=== PATIENT | female | born 1995 | race Caucasian/White ===

== ENCOUNTER 2023-10-01 10:31 | Emergency (ER) | payer MEDICAID, SELFPAY ==
[2023-10-01 10:33] VITALS: BP 135/75; PULSE 93; RESP 16; TEMP 35.9; O2SAT 98; BMI 21.8
[2023-10-01] MEDS: Fluorescein 1 MG STRIP 1 STRIP OPHTHALMIC (11:02)
--- NOTE | 2023-10-01 11:11 | EDS_ITS ---
HPI History of Present Illness Chief Complaint: Vision Prob Informant: patient Narrative Narrative: Patient is a 28-year-old female with history of alopecia, PCOS, SVT (status post EP study which was negative) followed by a month of migraine. When this migraine occurred she had 2 ER visits at [facility]. She states that she had a head CT at this time and on a subsequent visit had an LP. She denies ever following up but also reports she does not have insurance. This was in 2020. She states she never seen neurology. She is presenting today with blurry vision of her right eye as well as seeing a ring of light around things which she describes as a halo effect. She notes when she woke up she felt this but its been a couple hours and she still has blurry vision. She also notes that she is been having problems with her right eye for the past few months. She states she will get pain or pressure behind her eye and sometimes feel like she is having involuntary movement of her right eye. She states it seems like it is skipping frames. She did try flushing her eye out with no relief. Denies any trauma. She now feels that her eye is painful but states because it feels like it is draining. No other complaints or concerns at this time. Does report a family history on her mother side with an uncle who had MS. No other neurologic conditions reported in the family. [facility] Medical History PCOS (polycystic ovarian syndrome) Home Medications peg 400-propylene glycol (PF) 0.4 %-0.3 % eye drops in a dropperette (Systane (PF)) 1 drp EACH EYE Q4H PRN dry eye(s) #30 ea 10/01/23 [Rx Last Taken Unknown] Allergy/AdvReac Type Severity Reaction Status Date / Time escitalopram [From Lexapro] Allergy Intermediate Shortness Verified 10/01/23 10:33 of breath ROS ROS ED Constitutional Constitutional ED: Denies chills or fever(s) Eyes Eyes: Reports blurry vision and change in vision right; Denies diplopia ENT ENT ED: Denies ear pain, rhinorrhea or sore throat Cardiovascular Cardiovascular: Denies chest pain Respiratory/Chest Respiratory/Chest: Denies cough Gastrointestinal Gastrointestinal: Denies nausea or vomiting Integumentary Denies rash Neurologic Neurologic: Denies headache(s), paresthesias or weakness EXAM Physical Exam Const Vital Signs: 10/01/23 10:33 Temperature 96.6 F L Temperature Source Temporal Pulse Rate 93 Respiratory Rate 16 Blood Pressure 135/75 H Blood Pressure Mean 95 Pulse Ox 98 Oxygen Delivery Method Room Air Positive well nourished and well developed General Appearance ED: well developed HEENT Reports TM's clear atraumatic Nose: external nose normal Tympanic Membrane ED: Yes TM's clear Eyes Eyes Narrative: EOMI, PERRL. No conjunctival erythema appreciated. No excessive tearing. Normal lids. No periorbital edema appreciated. Slit-lamp exam performed. Some very subtle conjunctival injection of the medial aspect. No signs of iritis. Anterior chambers deep and quiet. Fluorescein exam performed with no uptake. There is some mild punctate spots over the eye diffusely consistent with some dry eye. Neck supple Neck Narrative: No meningeal signs Resp normal respiratory effort Cardio regular rate and regular rhythm Extremity normal to inspection Neuro oriented x3, CN's II-XII intact bilaterally, moves all extremities and no s ensory deficits noted Neuro Narrative: Normal coordination, no focal neurologic deficits appreciated Sensorium / Orientation: alert Psych Mood & Affect: Negative for depressed or anxious Skin no wounds Lesions: no lesions Rashes: no rashes MDM MDM MDM Narrative Medical decision making narrative: Patient is evaluated for blurry vision in the right eye as well as seen halo. This started today. Her visual acuity is relatively normal (OD 20/30 and OS 2020). She does not have pain. Do not think this is an acute angle glaucoma and I do not think pressures are indicated at this time. She has normal neurologic exam and I do not think she requires any neurologic imaging at this time. Discussed with patient that sometimes aura/halo can be a symptom of aura for migraine however she denies any headache at this time. She denies any history of seeing an aura. She is not on any medications as low suspicion for medication toxicity as the cause. On fluorescein exam she does have some findings distant with dry eye. I will prescribe Systane eyedrops. Because of these other odd eye symptoms been going on for the past few months and a family history of MS I did discuss the case with ophthalmology on-call, Dr. Romero. He is agreeable with follow-up outpatient in the office. He states to have the patient call in the morning. No further instructions/recommendations at this time. Agreeable with lubricating eyedrops. Given return precautions. Discharged home in stable condition. Discharge Plan Triage Chief Complaint: Vision Prob ED Provider: Annelise Blum Dx/Rx/DC Orders Clinical Impression: Dry eye of right side, Blurred vision, right eye Instructions: What Are Dry Eyes?, ED Blurred Vision Prescriptions: New Systane (PF) 0.4-0.3 % dropperette 1 drp EACH EYE Q4H PRN (Reason: dry eye(s)) Qty: 30 0RF Primary Care Provider: Care Physician,No Primary Referrals: Sourav Romero MD [Med Staff - Active Staff] - NOT,DEFINED [Non-Staff] - Activity Restrictions/Additional Instructions: I discussed the case with our certifier, Dr. Romero. He recommends you call the office first thing tomorrow morning ([facility]) to be seen as soon as possible. He is aware that you will be calling. Let them know that you were instructed to call from the ER and we spoke to him. Otherwise use eyedrops. Avoid rubbing your eyes. Avoid make-up to the eye. Return to the ER if you have a progression or worsening your symptoms or further concerns Disposition Disposition: Home, Self Care
== END 2023-10-01 11:57 | disposition home or self-care (01) ==
PROVIDERS: Emergency Provider Emergency Medicine; Visit Provider Emergency Medicine
DX: H53.8 Other visual disturbances (principal)
CPT/HCPCS: 99283

== ENCOUNTER 2023-10-12 19:35 | Emergency (ER) | payer MEDICAID, SELFPAY ==
[2023-10-12 19:37] VITALS: BP 115/57; PULSE 64; RESP 18; TEMP 36.4; O2SAT 98; BMI 21.9
--- NOTE | 2023-10-12 19:45 | RAD_ITS ---
STUDY: X-RAY - RIGHT WRIST REASON FOR EXAM: Female, 28 years old. injury TECHNIQUE: 3 view(s) of the wrist were obtained. COMPARISON: None. FINDINGS: Normal visualized distal radius and ulna. Normal radiocarpal articulation. Normal distal radioulnar articulation. Normal carpal bones. Normal carpal articulations. Normal carpometacarpal articulation of the thumb. Normal second through fifth carpometacarpal articulations. Normal visualized metacarpal bones. The soft tissue structures are unremarkable. RAD/Wrist min 3 Views IMPRESSION: Normal x-ray examination of the wrist. Electronically Signed: Sourav Jasso MD at 19:56 EST ,
--- NOTE | 2023-10-12 23:40 | EX.ED.UPPERE ---
HPI History of Present Illness HPI Narrative: Presents with right wrist injury that occurred approximately 1 week ago. Patient states she was lifting a bag of garbage and throwing it into a dumpster when she felt a pop in her right wrist. Patient states her pain is constant and aching. Patient states it is sharp with certain movements. Patient states it is better with rest. Patient denies any paresthesias or weakness. Patient denies any other injuries. Chief Complaint: Upper Extremity Injury Informant: patient Occured/Mechanism Comment: Patient was lifting a bag of garbage and felt a pop Onset/Context/Timing Onset: Weeks (1) Context: Sudden Onset Timing: Continuous Quality of Pain: Sharp and Aching Location: Right wrist Worsened by: Certain movements Relieved by: Rest Associated Symptoms Associated Symptoms: Negative for Parasthesia, Weakness or Loss of Funtion PFSH PFSH Medical History PCOS (polycystic ovarian syndrome) Home Medications peg 400-propylene glycol (PF) 0.4 %-0.3 % eye drops in a dropperette (Systane (PF)) 1 drp EACH EYE Q4H PRN dry eye(s) #30 ea 10/01/23 [Rx Last Taken Unknown] ibuprofen 600 mg tablet 600 mg PO Q8H PRN PRN pain #20 TABLETS 10/12/23 [Rx Last Taken Unknown] Allergy/AdvReac Type Severity Reaction Status Date / Time escitalopram [From Lexapro] Allergy Intermediate Shortness Verified 10/12/23 19:41 of breath Surgical History no surgical history no surgical history Social History Smoking Status: Current every day smoker tobacco type: cigarettes ROS ROS ED Constitutional Constitutional ED: Denies chills or fever(s) Eyes Eyes: Denies blurry vision or change in vision ENT ENT ED: Denies rhinorrhea or sore throat Cardiovascular Cardiovascular: Denies chest pain or palpitations Respiratory/Chest Respiratory/Chest: Denies cough or dyspnea Gastrointestinal Gastrointestinal: Denies nausea or vomiting Genitourinary Genitourinary ED: Denies dysuria or hematuria Musculoskeletal Musculoskeletal: Denies back pain or neck pain Integumentary Denies abscess or rash Neurologic Neurologic: Denies headache(s) or weakness Allergic/Immunologic Allergic/Immunologic ED: Denies mouth swelling or urticaria EXAM Physical Exam Const Vital Signs: 10/12/23 19:37 Temperature 97.6 F L Temperature Source Temporal Pulse Rate 64 Respiratory Rate 18 Blood Pressure 115/57 L Blood Pressure Mean 76 Pulse Ox 98 Oxygen Delivery Method Room Air Positive well nourished and well developed General Appearance ED: well developed and NAD HEENT Reports moist mucous membranes Neck full ROM and supple Extremity Extremity Narrative: There is tenderness over the volar aspect of the right wrist. There is no obvious deformity noted. Range of motion was slightly limited in all motions of the right wrist secondary to pain. Radial pulses are equal bilaterally. Sensations intact to light touch in the radial, median, and ulnar areas. Strength is 5/5 in the radial, median, and ulnar areas. Capillary refill is less than 2 seconds in all digits. Neuro oriented x3, CN's II-XII intact bilaterally, moves all extremities, no focal motor deficits and no sensory deficits noted Sensorium / Orientation: alert Motor Exam: strength 5/5 throughout Psych mental status grossly normal MDM MDM MDM Narrative Medical decision making narrative: Differential diagnosis includes sprain, contusion, and occult fracture. X-rays of the right wrist will be obtained to assess for occult fracture. Radiography Diagnostic Testing: Clinical Impression(s) from Imaging Studies Wrist X-Ray 10/12/23 19:45 IMPRESSION: Normal x-ray examination of the wrist. Electronically Signed: Sourav Jasso MD at 19:56 EST Reading Location ID and State: [address] [place] [address] Tel , Service support , X-rays of the right wrist were obtained. There are 3 views. On my independent interpretation, there is no acute fracture noted. There is no soft tissue swelling noted. There is no dislocation noted. Radiologist also interpreted the x-rays and agrees. Treatment and Re-Evaluation Narrative: Patient was advised of her findings. Patient was given a Velcro wrist splint. Patient was instructed to ice and elevate the right wrist. Patient was given a dose of ibuprofen here. Patient was instructed to take ibuprofen as needed for pain. Patient was instructed to follow-up with her primary care physician in 5 to 7 days. Patient understood and was agreeable with the plan. All questions were answered. Discharge Plan Triage Chief Complaint: Upper Extremity Injury ED Provider: Sandip Tejada Dx/Rx/DC Orders Clinical Impression: Right wrist sprain Instructions: ED Wrist Sprain Prescriptions: New ibuprofen 600 mg tablet 600 mg PO Q8H PRN PRN (Reason: pain) Qty: 20 0RF No Action Systane (PF) 0.4-0.3 % dropperette 1 drp EACH EYE Q4H PRN (Reason: dry eye(s)) Qty: 30 0RF Primary Care Provider: Care Physician,No Primary Referrals: Linda Ortega DO [Med Staff - Active Staff] - 5-7 Days Care Physician,No Primary [Primary Care Provider] - Disposition Disposition: Home, Self Care
[2023-10-13] MEDS: Ibuprofen 600 MG Tablet PO (00:10)
== END 2023-10-13 00:14 | disposition home or self-care (01) ==
LOC: ED 23:51
PROVIDERS: Emergency Provider Emergency Medicine; Visit Provider Emergency Medicine
DX: S63.91XA Sprain of unspecified part of right wrist and hand, initial encounter (principal); F17.210 Nicotine dependence, cigarettes, uncomplicated; X50.0XXA Overexertion from strenuous movement or load, initial encounter
CPT/HCPCS: 73110; 99283

== ENCOUNTER 2024-01-06 16:16 | Emergency (ER) | payer SELFPAY ==
[2024-01-06 16:17] VITALS: BP 130/81; PULSE 88; RESP 14; TEMP 36.2; O2SAT 99; BMI 22.1
--- OUTSIDE RECORDS SUMMARY | 2024-01-06 16:45 | XMS RPT_ITS | CCD ---
Author Name Unknown Address [address] [place] [address] Organization [facility] Care Team Providers Care Field Map Technician Name Role Phone Unavailable Primary Care Provider UnavailElyssa Younger DO Primary Care Provider ELYSSA AYALA Primary Care Unavailable Unavailable Primary Care Provider UnavailElyssa Younger DO Primary Care Provider Elyssa Ayala DO Primary Care Provider ELYSSA AYALA Primary Care Unavailable HIWOT DAHL Attending Unavailable ELYSSA AYALA Primary Care Unavailable ANDREI SCOTT Attending Unavailable ELYSSA AYALA Primary Care Unavailable PERRY CRAIG Attending Unavailable ELYSSA AYALA Primary Care Unavailable ELYSSA AYALA Primary Care Unavailable Unavailable Primary Care Provider UnavailEMMA Long Referring Unavailable EMMA MORGAN Attending Unavailable Allergies Allergy Classification Reported Allergen(s) Allergy Type Date of Onset Reaction(s) Facility Serotonin Reuptake Inhibitors (SSRIs) (5 sources) Escitalopram Drug Allergy 09-28-2016 [facility] (14 sources) Escitalopram; Translations: [ESCITALOPRAM OXALATE] Drug Allergy 09-28-2016 Other: See Comments [facility]- [place], [place] Medications Current Medications Medication Drug Class(es) Dates Sig (Normalized) Sig (Original) acetaminophen 500 mg oral tablet (2 sources) take 1 tablet by mouth every six hours as needed for pain acetaminophen (TYLENOL) 500 MG tablet Take 500 mg by mouth every 6 hours as needed for Pain 0 Active amoxicillin 500 mg oral capsule (2 sources) Penicillin-class Antibacterial Start: 11-08-2022 End: 11-18-2022 take 1 capsule by mouth twice daily amoxicillin (AMOXIL) 500 MG capsule Take 1 capsule by mouth 2 times daily for 10 days 20 capsule 0 11/08/2022 11/18/2022 Active Completed/Discontinued Medications Medication Drug Class(es) Dates Sig (Normalized) Sig (Original) cefdinir 300 mg oral capsule (4 sources) Cephalosporin Antibacterial Start: 02-02-2022 End: 02-07-2022 cefdinir (OMNICEF) capsule 300 mg Problems Active Problems Problem Classification Problem Date Documented Da te Episodic/Chronic Administrative/social admission (12 sources) Patient encounter status; Translations: [Other specified counseling] Onset: 09-28-2016 09-28-2016 Episodic Asthma (17 sources) Asthma; Translations: [Unspecified asthma, uncomplicated] Onset: 03-20-2017 03-20-2017 Chronic Cardiac and circulatory congenital anomalies (17 sources) Pulmonary artery stenosis; Translations: [Stenosis of pulmonary artery] Onset: 09-28-2016 09-28-2016 Chronic Disorders of teeth and jaw (2 sources) Toothache; Translations: [Impacted tooth ] Episodic Female infertility (1 source) Female infertility associated with anovulation; Translations: [Female infertility associated with anovulation] Chronic Genitourinary symptoms and ill-defined conditions (5 sources) Hematuria, unspecified; Translations: [Increased frequency of urination] Onset: 10-15-2022 Episodic Headache; including migraine (2 sources) Migraine; Translations: [Other migraine, not intractable, without status migrainosus] Onset: 05-04-2022 Chronic Headache; including migraine (1 source) Headache; including migraine; Translations: [Headache, unspecified] Onset: 05-07-2022 Immunizations and screening for infectious disease (1 source) Encounter for screening for infections with a predominantly sexual mode of transmission; Translations: [Screen for STD (sexually transmitted disease)] Onset: 12-27-2022 Episodic Mood disorders (17 sources) Depressive disorder; Translations: [Major depressive disorder, single episode, unspecified] Onset: 09-28-2016 03-20-2017 Chronic Nonspecific chest pain (1 source) Atypical chest pain; Translations: [Other chest pain] Episodic Other endocrine disorders (1 source) Polycystic ovary syndrome; Translations: [Polycystic ovarian syndrome] Chronic Other endocrine disorders (1 source) Polycystic ovarian syndrome; Translations: [PCOS (polycystic ovarian syndrome)] Onset: 12-27-2022 Chronic Other female genital disorders (1 source) Vaginal discharge; Translations: [Other specified noninflammatory disorders of vagina] Episodic Other gastrointestinal disorders (1 source) Constipation; Translations: [Other constipation] Episodic Other liver diseases (1 source) Elevated liver enzymes level; Translations: [Abnormal levels of other serum enzymes] Episodic Other screening for suspected conditions (not mental disorders or infectious disease) (2 sources) Cancer cervix screening status; Translations: [Encounter for screening for malignant neoplasm of cervix] Onset: 12-27-2022 Episodic Other upper respiratory infections (4 sources) Upper respiratory infection; Translations: [Acute upper respiratory infection, unspecified] Onset: 11-08-2022 Episodic Unclassified (1 source) Sprain of right ankle; Translations: [Sprain of right ankle, unspecified ligament, initial encounter] Unclassified (5 sources) Patient encounter status; Translations: [Counseling and coordination of care] Onset: 09-28-2016 09-28-2016 Urinary tract infections (5 sources) Acute cystitis; Translations: [Acute cystitis with hematuria] Onset: 02-02-2022 Episodic Past or Other Problems Problem Classification Problem Date Documented Da te Episodic/Chronic Fluid and electrolyte disorders (1 source) Dehydration Episodic Inflammatory diseases of female pelvic organs (1 source) Bacterial vaginosis; Translations: [Bacterial vaginosis] Episodic Influenza (1 source) Influenza due to Influenza B virus Episodic Mycoses (1 source) Candidiasis of mouth; Translations: [Thrush, oral] Episodic Nausea and vomiting (1 source) Nausea and vomiting Episodic Other aftercare (1 source) Follow-up status; Translations: [Counseling and coordination of care] Onset: 09-28-2016 09-28-2016 Episodic Other and delivery including normal (20 sources) Teenage ; Translations: [Normal ] Onset: 09-28-2016 09-28-2016 Episodic Other skin disorders (17 sources) Alopecia; Translations: [Nonscarring hair loss, unspecified] Onset: 09-28-2016 09-28-2016 Episodic Other skin disorders (1 source) Alopecia areata; Translations: [Alopecia areata, unspecified] Onset: 01-31-2005 01-31-2005 Episodic Residual codes; unclassified (17 sources) Gestation period, 33 weeks; Translations: [33 weeks gestation of ] Onset: 02-13-2017 Resolved: 03-13-2017 03-13-2017 Episodic Residual codes; unclassified (17 sources) Gestation period, 28 weeks; Translations: [28 weeks gestation of ] Onset: 01-05-2017 Resolved: 02-13-2017 02-13-2017 Episodic Residual codes; unclassified (17 sources) Gestation period, 13 weeks; Translations: [13 weeks gestation of ] Onset: 09-28-2016 Resolved: 11-10-2016 11-10-2016 Episodic Residual codes; unclassified (17 sources) Gestation period, 20 weeks; Translations: [20 weeks gestation of ] Onset: 11-10-2016 Resolved: 01-05-2017 01-05-2017 Episodic Residual codes; unclassified (17 sources) Gestation period, 37 weeks; Translations: [37 weeks gestation of ] Onset: 03-13-2017 03-13-2017 Episodic Results Test Name Value Interpretation Reference Range Facil it Vital Signs Date Time Vital Sign Value Performing Clinician Facility 12-27-2022 13:07-0500 Body weight 78.02 kg Emma Morgan MD Work Phone: [facility] 12-27-2022 13:07-0500 Diastolic blood pressure 54 mm[Hg] Emma Morgan MD Work Phone: [facility] 12-27-2022 13:07-0500 Systolic blood pressure 138 mm[Hg] Emma Morgan MD Work Phone: [facility] 11-08-2022 15:45-0500 Diastolic blood pressure 59 mm[Hg] Elyssaalisa Ayala DO Work Phone: [facility] [facility] 11-08-2022 15:45-0500 Heart rate 62 /min Elyssa Ayala DO Work Phone: [facility] 11-08-2022 15:45-0500 Respiratory rate 16 /min Elyssa Ayala DO Work Phone: [facility] 11-08-2022 15:45-0500 SaO2% (BldA) [Mass fraction] 97 % Elyssa Ayala DO Work Phone: [facility] 11-08-2022 15:45-0500 Systolic blood pressure 130 mm[Hg] Elyssa Ayala DO Work Phone: [facility] 11-08-2022 13:43-0500 Body temperature 98.01 [degF] Elyssa Ayala DO Work Phone: [facility] 05-04-2022 23:35-0400 Heart rate 56 /min Andrei Shiley DO Work Phone: [facility] 05-04-2022 23:35-0400 SaO2% (BldA) [Mass fraction] 97 % Andrei Shiley DO Work Phone: [facility] 05-04-2022 23:05-0400 Diastolic blood pressure 76 mm[Hg] Andrei Shiley DO Work Phone: [facility] 05-04-2022 23:05-0400 Systolic blood pressure 96 mm[Hg] Andrei Shiley DO Work Phone: [facility] 05-04-2022 21:37-0400 Body mass index (BMI) [Ratio] 33.61 kg/m2 Andrei Shiley DO Work Phone: [facility] 05-04-2022 21:37-0400 Body temperature 98.71 [degF] Andrei Shiley DO Work Phone: [facility] 05-04-2022 21:37-0400 Body weight 91.63 kg Andrei Shiley DO Work Phone: [facility] 05-04-2022 21:27-0400 Respiratory rate 18 /min Andrei Shiley DO Work Phone: [facility] 02-12-2022 16:05-0400 Diastolic blood pressure 72 mm[Hg] [facility] 02-12-2022 16:05-0400 Heart rate 99 /min Elyssa Ayala DO Work Phone: [employer] 02-12-2022 16:05-0400 Respiratory rate 18 /min Elyssaalisa Ayala DO Work Phone: [facility] [employer] 02-12-2022 16:05-0400 SaO2% (BldA) [Mass fraction] 98 % Elyssa Ayala DO Work Phone: [facility] [employer] 02-12-2022 16:05-0400 Systolic blood pressure 121 mm[Hg] Elyssa Ayala DO Work Phone: [facility] [employer] 02-12-2022 11:16-0400 Body temperature 98.2 [degF] Elyssa Ayala DO Work Phone: [facility] [employer] 02-12-2022 11:15-0400 Body mass index (BMI) [Ratio] 29.95 kg/m2 Elyssa Ayala DO Work Phone: [facility] [employer] 02-12-2022 11:15-0400 Body weight 81.65 kg Elyssa Ayala DO Work Phone: [facility] [employer] 02-02-2022 19:53-0500 Body temperature 97.59 [degF] [facility] 02-02-2022 19:53-0500 Diastolic blood pressure 65 mm[Hg] [facility] 02-02-2022 19:53-0500 Heart rate 109 /min [facility] 02-02-2022 19:53-0500 Respiratory rate 18 /min [facility] 02-02-2022 19:53-0500 SaO2% (BldA) [Mass fraction] 97 % [facility] 02-02-2022 19:53-0500 Systolic blood pressure 142 mm[Hg] [facility] 10-04-2021 09:39-0500 Diastolic blood pressure 64 mm[Hg] Elyssa Ayala DO Work Phone: [facility] [employer] 10-04-2021 09:39-0500 Systolic blood pressure 130 mm[Hg] Elyssa Ayala DO Work Phone: [facility] [employer] 10-04-2021 09:38-0500 Body mass index (BMI) [Ratio] 29.95 kg/m2 Elyssa Aayla DO Work Phone: [employer] 10-04-2021 09:38-0500 Body weight 81.65 kg Elyssa Ayala DO Work Phone: [employer] 10-04-2021 09:38-0500 Respiratory rate 16 /min Elyssa Ayala DO Work Phone: [employer] 10-04-2021 09:37-0500 Body temperature 97.7 [degF] Elyssa Ayala DO Work Phone: [employer] 10-04-2021 09:37-0500 Heart rate 98 /min Elyssa Ayala DO Work Phone: [employer] 10-04-2021 09:37-0500 SaO2% (BldA) [Mass fraction] 98 % Elyssa Ayala DO Work Phone: [employer] 07-20-2021 17:13-0400 Diastolic blood pressure 75 mm[Hg] Elyssa Ayala DO Work Phone: [employer] Work Phone: 07-20-2021 17:13-0400 Heart rate 105 /min Elyssa Ayala DO Work Phone: [employer] Work Phone: 07-20-2021 17:13-0400 Respiratory rate 20 /min Elyssa Ayala DO Work Phone: [employer] Work Phone: 07-20-2021 17:13-0400 SaO2% (BldA) [Mass fraction] 96 % Elyssa Ayala DO Work Phone: [employer] Work Phone: 07-20-2021 17:13-0400 Systolic blood pressure 136 mm[Hg] Elyssa Ayala DO Work Phone: [employer] Work Phone: 07-20-2021 16:49-0400 Body temperature 97.59 [degF] Elyssa Ayala DO Work Phone: [employer] Work Phone: 05-17-2021 12:01-0400 Diastolic blood pressure 51 mm[Hg] Elyssa Ayala DO Work Phone: [employer] Work Phone: 05-17-2021 12:01-0400 Heart rate 70 /min Elyssa Ayala DO Work Phone: [employer] Work Phone: 05-17-2021 12:01-0400 Respiratory rate 16 /min Elyssa Ayala [employer] Work Phone: [employer] Work Phone: 05-17-2021 12:01-0400 SaO2% (BldA) [Mass fraction] 97 % Elyssa Ayala DO Work Phone: [employer] Work Phone: 05-17-2021 12:01-0400 Systolic blood pressure 124 mm[Hg] Elyssa Ayala DO Work Phone: [employer] Work Phone: 05-17-2021 09:59-0400 Body height 165.1 cm Elyssa Ayala DO Work Phone: [employer] Phone: 05-17-2021 09:59-0400 Body mass index (BMI) [Ratio] 29.95 kg/m2 Elyssa Ayala DO Work Phone: [employer] Work Phone: 05-17-2021 09:59-0400 Body temperature 98.6 [degF] Elyssa Aayla DO Work Phone: [employer] Phone: 05-17-2021 09:59-0400 Body weight 81.65 kg Elyssa Ayala [employer] Work Phone: [employer] Phone: 03-27-2021 20:09-0400 Diastolic blood pressure 58 mm[Hg] Jesus Novak DO Work Phone: [employer] Work Phone: 03-27-2021 20:09-0400 Systolic blood pressure 128 mm[Hg] Jesus [employer] DO Work Phone: [employer] Work Phone: 03-27-2021 20:05-0400 Body height 162.6 cm [employer] Work Phone: [employer] Work Phone: 03-27-2021 20:05-0400 Body mass index (BMI) [Ratio] 31.76 kg/m2 [employer] Work Phone: [employer] Work Phone: 03-27-2021 20:05-0400 Body weight 83.92 kg [employer] Work Phone: [employer] Work Phone: 03-27-2021 20:05-0400 Heart rate 90 /min [employer] Work Phone: [employer] Work Phone: 03-27-2021 20:05-0400 Respiratory rate 14 /min [employer] Work Phone: [employer] Work Phone: 03-27-2021 20:05-0400 SaO2% (BldA) [Mass fraction] 97 % Jesus [employer] Work Phone: [employer] Work Phone: 03-27-2021 19:58-0400 Body temperature 97.81 [degF] Jesus [employer] Work Phone: [employer] Phone: 09-03-2020 18:13-0400 Pulse (Heart Rate) 88 /min [facility] [place] 09-03-2020 17:56-0400 BMI (Body Mass Index) 32.77 kg/m2 [facility] [place], [place] 09-03-2020 17:56-0400 Body Temperature 98.2 [degF] [facility] [place] 09-03-2020 17:56-0400 Body weight 83.92 kg [facility] , [place] 09-03-2020 17:56-0400 BP Diastolic 64 mm[Hg] [facility] , [place] 09-03-2020 17:56-0400 BP Systolic 146 mm[Hg] [facility] , [place] 09-03-2020 17:56-0400 Height 160 cm [facility] , [place] 09-03-2020 17:56-0400 Pulse Oximetry 99 % [facility] , [place] 09-03-2020 17:56-0400 Respiratory Rate 14 /min [facility], [place] 06-20-2020 16:03-0400 Pulse (Heart Rate) 96 /min [facility], [place] 06-20-2020 16:03-0400 Pulse Oximetry 99 % [facility] , [place] 06-20-2020 16:03-0400 Respiratory Rate 16 /min [facility] [place] 06-20-2020 15:55-0400 Body Temperature 97.9 [degF] [facility] [place] 04-27-2020 11:28-0400 Body Temperature 97.9 [degF] Jesus Novak [facility], [place] 12-15-2019 13:37-0500 Body temperature 99.7 [degF] Yayo Lockhart MD Work Phone: [facility] [employer] Work Phone: 12-15-2019 13:37-0500 Diastolic blood pressure 43 mm[Hg] Yayo Lockhart MD Work Phone: [employer] Work Phone: 12-15-2019 13:37-0500 Heart rate 84 /min Yayo Lockhart MD Work Phone: [employer] Work Phone: 12-15-2019 13:37-0500 Respiratory rate 18 /min Yayo Lockhart MD Work Phone: [employer] Work Phone: 12-15-2019 13:37-0500 SaO2% (BldA) [Mass fraction] 95 % Yayo Lockhart MD Work Phone: [employer] Work Phone: 12-15-2019 13:37-0500 Systolic blood pressure 103 mm[Hg] Yayo Lockhart MD Work Phone: [employer] Work Phone: 12-15-2019 11:46-0500 Body mass index (BMI) [Ratio] 30.9 kg/m2 Yayo Lockhart MD Work Phone: [employer] Work Phone: 12-15-2019 11:46-0500 Body weight 81.65 kg Yayo Lockhart MD Work Phone: [employer] Work Phone: 08-16-2019 16:54-0400 BMI (Body Mass Index) 34.33 kg/m2 [facility] [place] 08-16-2019 16:54-0400 Body Temperature 99 [degF] [facility], [place] 08-16-2019 16:54-0400 Body weight 90.72 kg [facility], [place] 08-16-2019 16:54-0400 BP Diastolic 74 mm[Hg] [facility], [place] 08-16-2019 16:54-0400 BP Systolic 129 mm[Hg] [facility], [place] 08-16-2019 16:54-0400 Height 162.6 cm [facility], [place] 08-16-2019 16:54-0400 Pulse (Heart Rate) 86 /min Juan Boldenaureliano [facility], [place] 08-16-2019 16:54-0400 Pulse Oximetry 99 % [facility], [place] 08-16-2019 16:54-0400 Respiratory Rate 16 /min [facility] [place] [place] Encounters Encounter Date Encounter Type Care Provider Facility Start: 12-27-2022 Encounter for gynecological examination (general) (routine) without abnormal findings EMMA MORGAN [facility] Start: 12-27-2022 End: 12-28-2022 ambulatory EMMA MORGAN Facility:[facility] Start: 12-27-2022 End: 12-27-2022 Patient encounter procedure Emma Morgan MD Work Phone: [facility] Procedures Date Procedure Procedure Detail Performing Clinician Start: 11-08-2022 ED NURSING COMMUNICATION ELYSSA AYALA Start: 11-08-2022 Iaadiadoo streptococ cus group a ELYSSA AYALA Start: 11-08-2022 Iaadiadoo streptococ cus group a Renata Dave PA-C Work Phone: Start: 10-15-2022 Urine test visual color cmprsn meths ELYSSA AYALA Start: 10-15-2022 Urnls dip stick/tabl et reagent auto microscopy ELYSSA AYALA Start: 05-07-2022 Urine test visual color cmprsn meths ELYSSA AYALA Start: 05-07-2022 Cell count misc body fluids w/differential count ELYSSA AYALA Start: 05-07-2022 Cul bact xcpt urine blood/stool aerobic isol ELYSSA AYALA Start: 05-07-2022 Blood count complete auto&auto difrntl wbc ELYSSA AYALA Start: 05-07-2022 INSERT PERIPHERAL IV SH TRUDI AYALA Start: 05-05-2022 Ct head/brain w/o co ntrast material ELYSSA AYALA Start: 05-05-2022 Urine test visual color cmprsn meths ELYSSA AYALA Start: 05-05-2022 SALINE LOCK IV ELYSSA Griffiths EORJARAD Start: 05-04-2022 Ct head/brain w/o co ntrast material Kelsy Mary Ann DO Work Phone: Start: 05-04-2022 Urine test visual color cmprsn meths Kelsy Mary Ann DO Work Phone: Start: 02-12-2022 Radiologic exam ches t 2 views ELYSSA AYALA Start: 02-12-2022 CHECK PULSE OXIMETRY WHILE AMBULATING ELYSSA AYALA Start: 02-12-2022 SALINE LOCK IV ELYSSA Griffiths EOGuerdaJARAD Start: 02-12-2022 TELEMETRY MONITORING TRUDI AYALA Start: 02-12-2022 Urine test visual color cmprsn meths ELYSSA AYALA Start: 02-12-2022 Ecg routine ecg w/le ast 12 lds w/i&r ELYSSA AYALA Start: 02-12-2022 Blood count complete auto&auto difrntl wbc ELYSSA AYALA Start: 02-12-2022 COVID-, RAPID ELYSSA AYALA Start: 02-12-2022 Radiologic exam ches t 2 views Hemal Silvio CERTIFIED COURT/MEDICAL INTERPRETER - SAFETY TECHNICIAN Work Phone: Start: 02-12-2022 Urine test visual color cmpreuben day Ivon Anders CERTIFIED COURT/MEDICAL INTERPRETER - SAFETY TECHNICIAN Work Phone: Start: 02-12-2022 Ecg routine ecg w/le ast 12 lds w/i&r Ivon Anders CERTIFIED COURT/MEDICAL INTERPRETER - SAFETY TECHNICIAN Work Phone: Start: 02-12-2022 Comprehensive metabo lic panel Ivon Anders CERTIFIED COURT/MEDICAL INTERPRETER - SAFETY TECHNICIAN Work Phone: Start: 02-12-2022 COVID-, RAPID Sophia Anders CERTIFIED COURT/MEDICAL INTERPRETER - SAFETY TECHNICIAN Work Phone: Start: 02-02-2022 Blood count complete auto&auto difrntl wbc ELYSSA AYALA Start: 02-02-2022 Culture bacterial quanttative colony count urine ELYSSA AYALA Start: 02-02-2022 Urnls dip stick/tabl et rgnt auto w/o microscopy ELYSSA AYALA Start: 02-02-2022 Assay of lactate Sandy ALMENDAREZ Work Phone: Start: 02-02-2022 Urinalysis microscopic only Sandy ALMENDAREZ Work Phone: Start: 02-02-2022 End: 02-02-2022 Urnls dip stick/tablet rgnt auto w/o microscopy Sandy ALMENDAREZ Work Phone: Start: 10-04-2021 Urinalysis microscopic only Lien Reveles CERTIFIED COURT/MEDICAL INTERPRETER - SAFETY TECHNICIAN Work Phone: Start: 10-04-2021 End: 10-04-2021 Urnls dip stick/tablet rgnt auto w/o microscopy Lien Reveles CERTIFIED COURT/MEDICAL INTERPRETER - SAFETY TECHNICIAN Work Phone: Start: 07-20-2021 Radiologic exam ches t 2 views Vee ALMENDAREZ Work Phone: Start: 07-20-2021 COVID-19, RAPID Vee ALMENDAREZ Work Phone: Start: 05-17-2021 COVID-19, RAPID Renata Dave PA-C Work Phone: Start: 05-11-2021 Intro/sheath, non-laser Juanjose Paula MD Work Phone: Start: 05-11-2021 Urine test visual color cmprsn meths Juanjose Paula MD Work Phone: Start: 03-27-2021 Urinalysis microscopic only Jesus Novak DO Work Phone: Start: 03-27-2021 End: 03-27-2021 Urnls dip stick/tablet rgnt auto w/o microscopy Jesusjason Novak DO Work Phone: Start: 09-03-2020 Gluc bld gluc mntr d ev cleared fda spec home use Alberto Alves Work Phone: Start: 08-18-2020 25 hydroxy includes fractions if performed Ehab L Sargious Work Phone: Start: 08-18-2020 Assay of free thyroxine Ehab L Sargious Work Phone: Start: 08-18-2020 Assay of thyroid stimulating hormone tsh Ehab L Sargious Work Phone: Start: 08-18-2020 Blood count complete auto&auto difrntl wbc Ehab L Sargious Work Phone: Start: 08-18-2020 Comprehensive metabo lic panel Mike Fortune Work Phone: Start: 08-18-2020 Drug screen class list a Mike Fortune Work Phone: Start: 08-18-2020 Urinalysis microscopic only ab Dimitry Fortune Work Phone: Start: 08-18-2020 Urnls dip stick/tabl et rgnt auto w/o microscopy ab Dimitry Fortune Work Phone: Start: 04-27-2020 Radex ankle complete minimum 3 views Jesus Novak Work Phone: Start: 12-15-2019 Urine test visual color cmprsn meths Contreras Moore DO Work Phone: Start: 12-15-2019 BASIC METABOLIC PANE L W/ REFLEX TO MG FOR LOW K Contrerasinge Moore DO Work Phone: Start: 12-15-2019 Blood count complete auto&auto difrntl wbc Contrerasinge Moore DO Work Phone: Start: 12-15-2019 Iaadiadoo influenza Alon as Oscar DO Work Phone: Start: 08-16-2019 Dup-scan artl taina abdl/pel/scrot&/rpr orgn com Juan Jaeger Work Phone: Start: 08-16-2019 Us transvaginal Juan Jaeger Work Phone: Start: 08-16-2019 Smr prim src wet mia nt nfct agt Juan Jaeger Work Phone: Start: 08-16-2019 End: 08-16-2019 SPECIMEN REJECTION Juan Jaeger Work Phone: Start: 08-16-2019 End: 08-16-2019 Iadna multiple organisms amplified probe tq Juan Jaeger Work Phone: Start: 08-16-2019 Urnls dip stick/tabl et rgnt auto w/o microscopy Juan Jaeger Work Phone: Start: 08-16-2019 Urine test visual color cmprsn meths Juan Jaeger Work Phone: Plan of Treatment Date Care Activity Detail Author Start: 03-21-2027 DTaP/Tdap/Td vaccine (2 - Td or Tdap) DTaP/Tdap/Td vaccine (2 - Td or Tdap) [facility] Start: 03-21-2027 DTaP/Tdap/Td vaccine (2 - Td) DTaP/Tdap/Td vaccine (2 - Td) [place] Start: 03-21-2027 DTaP/Tdap/Td vaccine (4 - Td or Tdap) DTaP/Tdap/Td vaccine (4 - Td or Tdap) [facility] Start: 12-27-2022 End: 02-26-2023 17-Hydroxyprogesterone [Mass/volume] in Serum or Plasma [facility] Work Phone: Immunizations Immunization Date Immunization Notes Care Provider Melisa posey 03-21-2017 tetanus toxoid, redu burt diphtheria toxoid, and acellular pertussis vaccine, adsorbed [facility] Payers Date Payer Category Payer Unknown [facility]SHA [facility] MED[facility] [id number] 2020-Present [phone] CLAIMS DEPARTMENT [address] [place] [address] [id number] 2020 Unknown [id number] 2018 Medicaid PENDING MEDICAID PENDING MEDICAID 2018-Present [id number] 1997 Unknown [id number] 1997 Unknown [id number] 1997 Unknown [id number] 1997 Unknown [id number] 1997 Unknown [id number] 1997 Unknown [id number] Social History Date Type Detail Facility Start: 04-10-2017 End: 10-15-2022 Tobacco smoking status NHIS Current every day smoker [place], [place] Start: 04-10-2017 History of tobacco use Cigarette Smo ker [place] Start: 04-27-2020 End: 10-15-2022 Cigarettes smoked current (pack per day) - Reported [place] Start: 04-27-2020 End: 11-08-2022 Alcohol intake Current non-drinker of alcohol (finding) [facility] [employer]BE Security Master Work Phone: Start: 03-18-2018 Alcohol Comment [facility] [place] [place] Start: 1995 Sex Assigned At Not on file [place], [place] Exposure to SARS-CoV -2 (event) Unable to assess [place] Start: 04-10-2017 History of tobacco use [place] Start: 04-27-2020 End: 10-15-2022 Tobacco use and exposure Never used [place] Start: 02-02-2022 End: 11-08-2022 Exposure to SARS-CoV-2 (event) Not sure [place] Start: 08-16-2019 Alcohol intake No [place] [facility] Clinical Notes 12-15-2019 to 12-27-2022 Emma Morgan MD - 12/27/2022 1:20 PM ESTInstructionsAttachmentsInstructionsAttachmentsInstructionsAttachments Note Date & Type Note Facility 12-27-2022 Note HNO ID: [id number] Author: Emma Morgan MD Service: ? Author Type: Physician Type: Progress Notes Filed: 12/27/2022 3:13 PM Note Text: [facility] Benign Gynecology [facility] PATIENT NAME: Augusta Rush PCP: No primary care provider on file. 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 who presents for her annual gynecologic exam Hx of PCOS, alopecia, hirsutism and SVT Childhood hx of pulmonary artery stenosis Visiting form [place] with complaints. Last pap smear was 2 years ago WNL No abnormal pap in past no colposcopy Dx with PCOS at age 16 and it was rechecked after few years and it was Rx with OCP She was on OCP from [age] Age 20 got on [employer] Son was born at age 21 6 week bleeding and no periods till 08/2022 , unprotected sex for 5 years and no periods 08/2022 first day was heavy period Skipped September Had one 10/2022 and it was heavy Dysmenorrhea, 12/17/2022 and period lasted 5 days 06/2022 she experienced pelvic pain and pressure Had a EP procedure completed and dx with SVT After the procedure she had headaches She was not eating too much She lost 50 IB since 06/2022 Hx of repeated UTI, constipation Some discharge white or clear Fatigue Lost 20 Ib since 08/2022 Low back pain right hip pain 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 HPV vaccine: No Last Pap: , normal HPV: , negative History of abnormal pap: No Sexually active: Yes Time with current partner: 4 years History of STDS: None Patient concerns for STD exposure: No. Desire STD testing: chlamydia, GC/Chlamydia, HIV, Hepatitis B, and Syphilis Pain with intercourse: No Postcoital bleeding: No Tobacco use? Stopped smoking 2021 and started vapping OB History No obstetric history on file. Family history of breast/ovarian/uterine cancer? No Review of Systems: General: Feels well. Denies fatigue, fever, chills, unintentional weight loss/weight gain. Psych: Feels stable, denies anxiety, depression or mood changes. Stress is tolerable. Abdomen: No abdominal pain, nausea, vomiting, diarrhea, or constipation. No bloating, early satiety, indigestion, or increased flatulence. Bladder: No dysuria, gross hematuria, urinary frequency, urinary urgency, or incontinence Breast: No breast lumps, nipple d/c, overlying skin changes, redness or skin retraction Past Medical History: PAST MEDICAL HISTORY Diagnosis Date Pulmonary artery stenosis SVT (supraventricular tachycardia) (HCC) Family History: No family history on file. Past Surgical History: No past surgical history on file. Social History: Allergies: ALLERGIES Allergen Reactions Escitalopram Oxalate Other: See Comments Chest tightness and difficult breathing Allergies updated: Yes Medications: Current Outpatient Medications Medication Sig NIZORAL 2% SHAMPOO Use 2 times/week OLUX 0.05% FOAM apply to affected areas each morning, 2 weeks on and 1 week off LIDEX 0.05% SOLUTION apply to affected areas each evening, 2 weeks on and 1 week off No current facility-administered medications for this visit. Medications reviewed in detail and updated PRN. Yes Physical Exam: BP 138/54 Wt 172 lb (78 kg) LMP 12/13/2022 (Approximate) GENERAL: Well appearing, alert, well-hydrated, well nourished female in no apparent distress HEENT: Normocephalic, atraumatic, mucus membranes moist, and no lesions NECK: Supple, full range of motion, no adenopathy, and thyroid normal DERMATOLOGY: Normal, without lesions, non-icteric, and non-hirsute BREAST: soft, non-tender, symmetric, no dominant mass, normal nipple-areolar complex, no lymphadenopathy, and no nipple discharge CHEST: Normal inspiratory effort ABDOMEN: soft, non-tender, and no masses PELVIC: external genitalia normal, normal Bartholin's glands, urethra, Brave's glands, no vulvar lesions, no cervical lesions, good vaginal support, physiologic discharge present, normal appearing perineal body and perianal region BIMANUAL: uterus normal size, shape and consistency, no adnexal masses, and non-tender RECTOVAGINAL: deferred. NEURO: alert and oriented x3 EXTREMITIES: normal Recent labs/Diagnostic studies: I have thoroughly reviewed this patients previous notes, encounters, labs, and results prior to this visit. Health Maintenance HEPATITIS B(1 of 3 - 3-dose series) Never done HPV VACCINE(1 - 2-dose series) Never done HEPATITIS C SCREENING Never done HIV SCREENING Never done DTAP,TDAP,TD(1 - Tdap) Never done PAP TESTING Never done COVID-19 VACCINE(3 - Booster for Pfizer series) due on 10/11/2021 INFLUENZA(1) due on 07/28/2022 DEPRESSION ASSESSMENT Never done Assessment and Plan Encounter D (more content not included)... [facility] 12-27-2022 History of Presen t illness Narrative Images from the original note were not included. [facility] PATIENT NAME: Augusta Rush PCP: No primary care provider on file. 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 who presents for her annual gynecologic exam Hx of PCOS, alopecia, hirsutism and SVT Childhood hx of pulmonary artery stenosis Visiting form [facility] with complaints. Last pap smear was 2 years ago WNL No abnormal pap in past no colposcopy Dx with PCOS at age 16 and it was rechecked after few years and it was Rx with OCP She was on OCP from [age] Age 20 got on [employer] Son was born at age 19 6 week bleeding and no periods till 08/2022 , unprotected sex for 5 years and no periods 08/2022 first day was heavy period Skipped September Had one 10/2022 and it was heavy Dysmenorrhea, 12/17/2022 and period lasted 5 days 06/2022 she experienced pelvic pain and pressure Had a EP procedure completed and dx with SVT After the procedure she had headaches She was not eating too much She lost 50 IB since 06/2022 Hx of repeated UTI, constipation Some discharge white or clear Fatigue Lost 20 Ib since 08/2022 Low back pain right hip pain 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 HPV vaccine: No Last Pap: , normal HPV: , negative History of abnormal pap: No Sexually active: Yes Time with current partner: 4 years History of STDS: None Patient concerns for STD exposure: No. Desire STD testing: chlamydia, GC/Chlamydia, HIV, Hepatitis B, and Syphilis Pain with intercourse: No Postcoital bleeding: No Tobacco use? Stopped smoking 2021 and started vapping OB History No obstetric history on file. Family history of breast/ovarian/uterine cancer? No Review of Systems: General: Feels well. Denies fatigue, fever, chills, unintentional weight loss/weight gain. Psych: Feels stable, denies anxiety, depression or mood changes. Stress is tolerable. Abdomen: No abdominal pain, nausea, vomiting, diarrhea, or constipation. No bloating, early satiety, indigestion, or increased flatulence. Bladder: No dysuria, gross hematuria, urinary frequency, urinary urgency, or incontinence Breast: No breast lumps, nipple d/c, overlying skin changes, redness or skin retraction Past Medical History: PAST MEDICAL HISTORY Diagnosis Date Pulmonary artery stenosis SVT (supraventricular tachycardia) (HCC) Family History: No family history on file. Past Surgical History: No past surgical history on file. Social History: Allergies: ALLERGIES Allergen Reactions Escitalopram Oxalate Other: See Comments Chest tightness and difficult breathing Allergies updated: Yes Medications: Current Outpatient Medications Medication Sig NIZORAL 2% SHAMPOO Use 2 times/week OLUX 0.05% FOAM apply to affected areas each morning, 2 weeks on and 1 week off LIDEX 0.05% SOLUTION apply to affected areas each evening, 2 weeks on and 1 week off No current facility-administered medications for this visit. Medications reviewed in detail and updated PRN. Yes Physical Exam: BP 138/54 Wt 172 lb (78 kg) LMP 12/13/2022 (Approximate) GENERAL: Well appearing, alert, well-hydrated, well nourished female in no apparent distress HEENT: Normocephalic, atraumatic, mucus membranes moist, and no lesions NECK: Supple, full range of motion, no adenopathy, and thyroid normal DERMATOLOGY: Normal, without lesions, non-icteric, and non-hirsute BREAST: soft, non-tender, symmetric, no dominant mass, normal nipple-areolar complex, no lymphadenopathy, and no nipple discharge CHEST: Normal inspiratory effort ABDOMEN: soft, non-tender, and no masses PELVIC: external genitalia normal, normal Bartholin's glands, urethra, Brave's glands, no vulvar lesions, no cervical lesions, good vaginal support, physiologic discharge present, normal appearing perineal body and perianal region BIMANUAL: uterus normal size, shape and consistency, no adnexal masses, and non-tender RECTOVAGINAL: deferred. NEURO: alert and oriented x3 EXTREMITIES: normal Recent labs/Diagnostic studies: I have thoroughly reviewed this patients previous notes, encounters, labs, and results prior to this visit. Health Maintenance HEPATITIS B(1 of 3 - 3-dose series) Never done HPV VACCINE(1 - 2-dose series) Never done HEPATITIS C SCREENING Never done HIV SCREENING Never done DTAP,TDAP,TD(1 - Tdap) Never done PAP TESTING Never done COVID-19 VACCINE(3 - Booster for Pfizer series) due on 10/11/2021 INFLUENZA(1) due on 07/28/2022 DEPRESSION ASSESSMENT Never done Assessment and Plan Encounter Diagnosis ICD-10-CM 1. Encounter for gynecological examination without abnormal finding Z01.419 PAP FLUID CERVICAL SCREENING TSH BLD PROLACTIN BLD DHEA-S BLD HYDROXYPROGESTERO-17 FSH BLD LUTEINIZING HORMONE ESTRADIOL-17B BLD PELVIC US WHI HGB A1C GLUCOSE FASTING BLD BIOAVAIL TESTO/SHBG, FEM & CHILD 2. Screening for malignant neoplasm of cervix Z12.4 PAP FLUID CERVICAL SCREENING TSH BLD PROLACTIN BLD DHEA-S BLD HYDROXYPROGESTERO-17 FSH BLD LUTEINIZING HORMONE ESTRADIOL-17B BLD PELVIC US WHI HGB A1C GLUCOSE FASTING BLD BIOAVAIL TESTO/SHBG, FEM & CHILD 3. Frequent urination R35.0 URINE CULTURE TSH BLD PROLACTIN BLD DHEA-S BLD HYDROXYPROGESTERO-17 FSH BLD LUTEINIZING HORMONE ESTRADIOL-17B BLD PELVIC US WHI HGB A1C GLUCOSE FASTING BLD BIOAVAIL TESTO/SHBG, FEM & CHILD 4. PCOS (polycystic ovarian syndrome) E28.2 TSH BLD PROLACTIN BLD DHEA-S BLD HYDROXYPROGESTERO-17 FSH BLD LUTEINIZING HORMONE ESTRADIOL-17B BLD PELVIC US WHI HGB A1C GLUCOSE FASTING BLD BIOAVAIL TESTO/SHBG, FEM & CHILD URINALYSIS WITH MICROSCOPIC, REFLEX CULTURE WHIIVF ANTI MULLERIAN HORMONE 5. Screen for STD (sexually transmitted disease) Z11.3 GC/CHLAMYDIA DNA DET HIV 1 2 COMBO(AG/AB),WITH REFLEX TO DIFFERENTIATION HEP C AB IA W/CONF SCRN SYPHILIS TOTAL W/REFLEX WHIIVF ANTI MULLERIAN HORMONE 6. Dysuria R30.0 URINALYSIS WITH MICROSCOPIC, REFLEX CULTURE 7. Vaginal discharge N89.8 ERIBERTO / TRICHOMONAS AMPLIFICATION BACTERIAL VAGINOSIS AMPLIFICATION 8. Other constipation K59.09 I spent a total of 60 minutes on the date of the service which included preparing to see the patient, [id number] patient care, completing clinical documentation, obtaining and/or reviewing separately obtained history, performing a medically appropriate examination, counseling and educating the patient/family/caregiver, and ordering medications, tests, or procedures. SIGNATURE: Emma Morgan MD PAGER: [phone] CC: No primary care provider on file. via EMR documented in this encounter [facility] 02-12-2022 [facility] Discharg e instructions Hemal Anguiano APRN - ARSALAN - 02/12/2022 Return to the ER for any worsening symptoms Follow up with your PCP for further evaluation The following attachments cannot be sent through Care Everywhere.Chest Pain (Libyan)documented in this encounter [employer] Phone: 03-27-2021 [facility] Discharg e instructions Jesus Novak DO - 03/27/2021 Return if symptoms change or worsen. Thank you for the opportunity to care for you during this emergency department visit. I hope you are doing better. We strive to always improve our care. You may receive a survey and I hope you had a positive experience here. We greatly appreciate your 5 scores. The following attachments cannot be sent through Care Everywhere.UTI (Urinary Tract Infection): Female (Libyan)documented in this encounter [employer] Phone: 12-15-2019 [facility] Discharg e instructions Contreras Moore DO - 12/15/2019 Please follow-up with your regular doctor in the next 2 to 3 days for further evaluation of your symptoms. Please return to the emergency department for further evaluation if you have any lightheadedness, unable to eat or drink, chest pain, or any other new or worsening symptoms. Please do your best to stay hydrated. Please take the Zofran for nausea. The following attachments cannot be sent through Care Everywhere.Nausea and Vomiting (Libyan)Influenza (Libyan)Dehydration (Libyan)documented in this encounter [employer] Phone: documented in this encounter [employer] Phone: evaluation note* Diagnosis Female infertility associated with anovulation documented in this encounter [employer] Phone: evaluation note* Diagnosis Upper respiratory tract infection, unspecified type- Primary documented in this encounter [employer] Phone: evaluation note* Diagnosis Viral URI with cough- Primary Acute upper respiratory infections of unspecified site documented in this encounter [employer] Phone: evaluation note* Diagnosis Urinary tract infection in female- Primary documented in this encounter [employer] Phone: evaltrsoaa note* Diagnosis Acute cystitis without hematuria- Primary Acute cystitis documented in this encounter [employer] Phone: evaluation note* Diagnosis Atypical chest pain- Primary Other chest pain Elevated liver enzymes Nonspecific elevation of levels of transaminase or lactic acid dehydrogenase (LDH) documented in this encounter [employer] Phone: evaluation note* Diagnosis Influenza B- Primary Influenza with other respiratory manifestations Dehydration Non-intractable vomiting with nausea, unspecified vomiting type documented in this encounter [employer] Phone: evalpjkuij note* Diagnosis Other migraine without status migrainosus, not intractable- Primary documented in this encounter [employer] Phone: evaluation note* Diagnosis Strep pharyngitis- Primary Streptococcal sore throat documented in this encounter [employer] Phone: evaluation note* Diagnosis Encounter for gynecological examination without abnormal finding- Primary Routine gynecological examination Screening for malignant neoplasm of cervix Screening for malignant neoplasm of the cervix Frequent urination Urinary frequency PCOS (polycystic ovarian syndrome) Polycystic ovaries Screen for STD (sexually transmitted disease) Screening examination for venereal disease Dysuria Vaginal discharge Leukorrhea, not specified as infective Other constipation [facility] Attachments The following attachments cannot be sent through Care Everywhere. * URI (Upper Respiratory Infection) (Libyan) [facility] Discharge instructions* Attachments The following attachments cannot be sent through Care Everywhere. * URI (Upper Respiratory Infection): Viral (Libyan) * Sinus Rinse (Libyan) [facility]: spital Discharge instructions* Attachments The following attachments cannot be sent through Care Everywhere. * UTI (Urinary Tract Infection): Female (Libyan) [facility]: spital Discharge instructions* Attachments The following attachments cannot be sent through Care Everywhere. * UTI (Urinary Tract Infection): Female (Libyan) [facility]: spital Discharge instructions* Instructions* Kelsy Reese DO - 05/05/2022 Thank you for the opportunity to serve in your medical care today. Please be sure to take your prescribed medication as directed. Follow up with your doctor is critical for optimal healing. Should you have any new or worsening symptoms, please return to the Emergency Department for further work-up and evaluation. * Attachments The following attachments cannot be sent through Care Everywhere. * Migraine Headache ([place]) [facility]: Hospital Discharge instructions* Attachments The following attachments cannot be sent through Care Everywhere. * Strep Throat (Libyan) [facility] Phone: reason for referral (narrative)* Diagnostic Procedure Only (Routine) - Pending Review Specialty Diagnoses / Procedures Referred By Nishant santo Referred To Contact [facility] Diagnoses Encounter for gynecological examination without abnormal finding Screening for malignant neoplasm of cervix Frequent urination PCOS (polycystic ovarian syndrome) Procedures PELVIC US WHI US PELVIC NONOBSTETRIC REAL-TIME IMAGE COMPLETE Emma Morgan MD [address] [place] [address] [facility] [address] [place] [address] Referral ID Status Reason Start Date Expiration Date Visits Requested Visits Authorized [id number] Pending Review Auto-Generat ed Referral 12/27/2022 12/27/2023 1 1 [facility] Discharge Instructions * Attachments The following attachments cannot be sent through Care Everywhere. * Ankle Sprain (Libyan) documented in this encounter* Attachments The following attachments cannot be sent through Care Everywhere. * Robinson Tooth Extraction: Pre-op (Libyan) documented in this encounter* Attachments The following attachments cannot be sent through Care Everywhere. * Bacterial Vaginosis (Libyan) documented in this encounter* Attachments The following attachments cannot be sent through Care Everywhere. * Candidiasis (Libyan) documented in this encounter Assessments Diagnosis Sprain of right ankle, unspecified ligament, initial encounter Diagnosis Pain, dental Unspecified disorder of the teeth and supporting structures Impacted tooth Disturbances in tooth eruption Diagnosis Bacterial vaginosis- Primary Vaginitis and vulvovaginitis, unspecified Diagnosis Thrush, oral Candidiasis of mouth Advance Directives No Advanced Directives Records FoundDocuments on File Type Date Recorded Patient Assembler Convertible Top Expl anation Advance Directives and Livin g Will 08/29/2013 11:37 AM Advance Directives and Livin g Will 2013 10:40 AM Power of Lead Esthetician Latest Code Status on File Code Status Date Activated Date Inactivated Comments Full Code 03/20/2017 1:16 PM 03/22/2017 3:05 PM Full Code 03/20/2017 6:36 AM 03/20/2017 1:16 PM Full Code 03/16/2017 3:05 PM 03/17/2017 10:20 AM Full Code 03/03/2017 3:20 PM 03/03/2017 10:23 PM Full Code 11/20/2016 10:38 PM 11/21/2016 2:18 AM Documents on File Type Date Recorded Patient Assembler Convertible Top Expl anation ACP-Advance Directive 08/29/2013 11:37 AM ACP-Advance Directive 2013 10:40 AM ACP-Power of Lead Esthetician Documents on File Type Date Recorded Patient Assembler Convertible Top Expl anation ACP-Power of Lead Esthetician ACP-Advance Directive 2013 10:40 AM ACP-Advance Directive 08/29/2013 11:37 AM Documents on File Type Date Recorded Patient Assembler Convertible Top Expl anation ACP-Power of Lead Esthetician ACP-Advance Directive 2013 10:40 AM ACP-Advance Directive 08/29/2013 11:37 AM Latest Code Status on File Code Status Date Activated Date Inactivated Comments Full Code 03/20/2017 1:16 PM 03/22/2017 3:05 PM Full Code 03/20/2017 6:36 AM 03/20/2017 1:16 PM Full Code 03/16/2017 3:05 PM 03/17/2017 10:20 AM Full Code 03/03/2017 3:20 PM 03/03/2017 10:23 PM Full Code 11/20/2016 10:38 PM 11/21/2016 2:18 AM Documents on File Type Date Recorded Patient Assembler Convertible Top Expl anation ACP-Advance Directive 2013 10:40 AM ACP-Advance Directive 08/29/2013 11:37 AM Reason for Referral Status Reason Specialty Diagnoses / Procedures Re ferred By Contact Referred To Contact Closed Radiology Diagnoses Female infertility associated with anovulation Procedures FL HYSTEROSALPINGOGRAM Juanjose Paula MD [address] [facility] [place] [address] Summary Purpose Family History No Family History Records FoundNo Family History Records FoundNo Family History Records FoundNo Family History Records Found Additional Source Comments Reason for Visit (unrecogniz ed section and content) Reason Comments Dental Pain right lower dental p ain. Reason Comments Other bulge vaginal area s melonie last pm abd pain 2 months Reason Comments Other sores in mouth for 2 days Reason Comments Urinary Tract Infection +burning with ur ination, + abdominal pain Abdominal Pain Status Reason Specialty Diagnoses / Procedures Re ferred By Contact Referred To Contact Closed Radiology Diagnoses Female infertility associated with anovulation Procedures FL HYSTEROSALPINGOGRAM Juanjose Paula MD [address] [facility] [place] [address] Reason Comments URI cough, congestion so re throat runny nose onset 3 days Reason Comments Nasal Congestion sore throat, cough, chest heaviness, productive green/yellow mucus x 2 days Reason Comments Urinary Tract Infection x 4 days Reason Comments Urinary Tract Infection pt experiencing painfull urination, frequncy and incotinence Back Pain low to mid back pain Reason Comments Shortness of Breath symptoms starting th is am Palpitations Chest Pain Reason Comments Dizziness on and off for 6 day s, thinks shes dehydrated Emesis hasnt been able to k eep anything down for 4 days Cough Reason Comments Migraine X 4 DAYS Reason Comments Pharyngitis Symptoms started yes terday with soreness and swollen glands Reason Comments Order Processing Clerk Exam Ordered Prescriptions (unrec ognized section and content) Prescription Sig Dispensed Refills Start Date End Da te predniSONE (DELTASONE) 10 MG tablet Take 40mg po qd x 5 days QS for 5 days 20 tablet 0 05/17/2021 05/27/2021 brompheniramine-pseudoe phedrine-DM 2-30-10 MG/5ML syrup Take 5 mLs by mouth 4 times daily as needed for Congestion or Cough 120 mL 0 05/17/2021 05/22/2021 predniSONE (DELTASONE) 10 MG tablet Take 40mg po qd x 5 days QS for 5 days 20 tablet 0 05/17/2021 05/17/2021 brompheniramine-pseudoe phedrine-DM 2-30-10 MG/5ML syrup Take 5 mLs by mouth 4 times daily as needed for Congestion or Cough 120 mL 0 05/17/2021 05/17/2021 Prescription Sig Dispensed Refills Start Date End Da te guaiFENesin (MUCINEX) 600 MG extended release tablet Take 1 tablet by mouth 2 times daily for 5 days 10 tablet 0 07/20/2021 07/25/2021 fluticasone (FLONASE) 50 MCG/ACT nasal spray 1 spray by Nasal route daily 1 Bottle 0 07/20/2021 Prescription Sig Dispensed Refills Start Date End Da te cephALEXin (KEFLEX) 500 MG capsule Take 1 capsule by mouth 3 times daily for 7 days 21 capsule 0 10/04/2021 10/11/2021 phenazopyridine (PYRIDIUM) 100 MG tablet Take 1 tablet by mouth 3 times daily as needed for Pain 9 tablet 0 10/04/2021 10/07/2021 Prescription Sig Dispensed Refills Start Date End Da te cefdinir (OMNICEF) 300 MG capsule Take 1 capsule by mouth 2 times daily for 5 days 10 capsule 0 02/02/2022 02/07/2022 Prescription Sig Dispensed Refills Start Date End Da te amoxicillin (AMOXIL) 500 MG capsule Take 1 capsule by mouth 2 times daily for 10 days 20 capsule 0 11/08/2022 11/18/2022 predniSONE (DELTASONE) 10 MG tablet Take 40mg po qd x 5 days QS for 5 days 20 tablet 0 11/08/2022 11/18/2022 INFORMATION SOURCE (unrecogn ized section and content) DATE CREATED AUTHOR AUTHOR'S ORGANIZ ATION 02/12/2022 [facility] DATE CREATED AUTHOR AUTHOR'S ORGANIZ ATION 11/16/2022 [facility] DATE CREATED AUTHOR AUTHOR'S ORGANIZ ATION 01/01/2023 [facility] Care Teams (unrecognized sec tion and content) Field Map Technician Relationship Specialty Start Date End Date Elyssa Ayala [address] [address] PCP - General Family Medicine 05/17/21 Field Map Technician Relationship Specialty Start Date End Date Elyssa Ayala [address] [place] [address] PCP - General Family Medicine 05/17/21 Field Map Technician Relationship Specialty Start Date End Date Elyssa Ayala [address] [place] [address] PCP - General Family Medicine 05/17/21 Field Map Technician Relationship Specialty Start Date End Date Elyssa Ayala [address] [place] [address] PCP - General Family Medicine 05/17/21 Scheduled Active and Recently Administ ered Medications (unrecognized section and content) Scheduled Medication Order 05/03/2022 05/04/2022 05/05/2022 0.9 % sodium chloride IV bolus 1,000 mL (COMPLETED) 1,000 mL, IntraVENous, at 2,000 mL/hr, Administer over 30 Minutes, ONCE, On Mon05/04/22 at 2215, For 1 dose 2248 (New Bag - Provider: Kindra Strickland RN)2333 (Stopped - Provider: Kindra Strickland RN) diphenhydrAMINE (BENADRYL) injection 25 mg (COMPLETED) 25 mg, IntraVENous, ONCE, 1 dose, On Mon05/04/22 at 2215 2247 (Given - Provider: Marysol Strickland RN) prochlorperazine (COMPAZINE) injection 10 mg (COMPLETED) 10 mg, IntraVENous, ONCE, 1 dose, On Mon05/04/22 at 2215 2247 (Given - Provider: Marysol Strickland RN) Scheduled Medication Order 11/06/2022 11/07/2022 11/08/2022 ibuprofen (ADVIL;MOTRIN) tablet 600 mg (COMPLETED) 600 mg, Oral, ONCE, 1 dose, On Mon11/08/22 at 1445, Do not crush or chew. 1451 (Given - Provid er: Katarina Worley RN) Source Comments (unrecognize d section and content) In the event this informatio n is protected by the Federal Confidentiality of Alcohol and Drug Abuse Patient Records regulations: The Federal rules restrict any use of the information to criminally investigate or prosecute any alcohol or drug abuse patient.[facility] FOR RECORDS PERTAINING TO PATIENTS WHO ARE OR HAVE BEEN ENROLLED IN A CHEMICAL DEPENDENCY/SUBSTANCEABUSE PROGRAM, SOME INFORMATION MAY BE OMITTED. This clinical summary was aggregated from multiple sources. Caution should be exercised in using it in the provision of clinical care. This summary normalizes information from multiple sources, and as a consequence, information in this document may materially change the coding, format and clinical context of patient data. In addition, data may be omitted in some cases. CLINICAL DECISIONS SHOULD BE BASED ON THE PRIMARY CLINICAL RECORDS. [facility] [employer] [facility]. provides no warranty or guarantee of the accuracy or completeness of information in this document.
[2024-01-06 17:03] LABS: Mucous, Urine 0 SEEN /hpf (<or=2+)
[2024-01-06 17:30] LABS: Glucose, Dipstick Normal (Normal); Ketone-Dipstick Negative (Negative); Leukocyte Esterase-Dipstick 100 /ul (Negative); Nitrite-Dipstick Positive (Negative); Occult Blood-Urine 150 /ul (Negative); Protein-Dipstick 30 mg/dl (Negative); Urine Clarity Clear (Clear); Urine Urobilinogen 12 mg/dl (Normal)
[2024-01-06 17:32] LABS: Color, Urine SEE COMMENT BELOW (Yellow); Urine Bilirubin Dipstick 6 mg/dL (Negative)
[2024-01-06 18:11] LABS: White Blood Cells 50-100 SEEN /hpf (0-5)
[2024-01-06 18:12] LABS: Bacteria RARE /hpf (None Seen); Internal QC Validated? YES +Cl - CLEAR BKGD; Pregnancy, Urine Negative Negative; Red Blood Cells-Urine 10-25 SEEN /hpf (0-5); Squamous Epithelial Cells - UA 0-5 SEEN /hpf (5-10)
--- NOTE | 2024-01-06 18:59 | ED.VIS.FEGU ---
HPI HPI - Female History of Present Illness Chief Complaint: Complaint Informant: patient Narrative Narrative: Patient feels she has UTI. She has these about 1-3 times per year. She has 2 to 3 days of dysuria frequency urgency. She has been taking Azo from the store. No fevers or chills. She states sometimes her backs a little bit sore but is not consistent and it does not stay on 1 side. No history of kidney stones. PFSH PFS Medical History PCOS (polycystic ovarian syndrome) Home Medications nitrofurantoin monohydrate/macrocrystals 100 mg capsule (Macrobid) 100 mg PO Q12H 7 days #14 caps 01/06/24 [Rx Last Taken Unknown] Allergy/AdvReac Type Severity Reaction Status Date / Time escitalopram [From Lexapro] Allergy Intermediate Shortness Verified 01/06/24 16:17 of breath Social History Smoking Status: Current every day smoker tobacco type: cigarettes and e-cigarettes ROS ROS ED Constitutional Constitutional ED: Denies chills or fever(s) ENT ENT ED: Denies rhinorrhea Cardiovascular Cardiovascular: Denies chest pain Respiratory/Chest Respiratory/Chest: Denies cough or dyspnea Gastrointestinal Gastrointestinal: Denies abdominal pain, diarrhea, nausea or vomiting Genitourinary Genitourinary ED: Reports dysuria and urinary frequency; Denies hematuria Musculoskeletal Musculoskeletal: Denies myalgias Integumentary Denies rash Hematologic/Lymphatic Hematologic/Lymphatic: Denies easy bleeding or easy bruising EXAM Physical Exam Narrative Exam Narrative: CONSTITUTIONAL: Patient is nontoxic in appearance. The patient looks comfortable. HEENT: No notable trauma. Mucous membranes moist. CARDIOVASCULAR: Regular rate. Regular rhythm. No notable murmur. No JVD. RESPIRATORY: No respiratory distress. Breathing is unlabored. No wheezes. No rhonchi. No rales. No pain with a deep breath. GASTROINTESTINAL: Not distended. Bowel sounds are normal. No tenderness. No guarding. No rebound. No palpable mass. No bruit. GENITOURINARY: No tenderness over the bladder. No CVA tenderness on either side. MUSCULOSKELETAL: Atraumatic. No tenderness NEUROLOGICAL: Patient is alert and appropriate. No focal deficit noted. SKIN: No noted rashes. No diaphoresis. PSYCHIATRIC: Patient is calm. Mood is appropriate. Const Vital Signs: 01/06/24 16:17 Temperature 97.2 F L Temperature Source Temporal Pulse Rate 88 Respiratory Rate 14 Blood Pressure 130/81 H Blood Pressure Mean 97 Pulse Ox 99 Oxygen Delivery Method Room Air MDM MDM MDM Narrative Medical decision making narrative: Patient's urinalysis shows positive nitrites, leukocyte Estrace, large number white cells along with red cells. is negative. We will treat this as UTI. She will follow-up with primary physician. Return with nausea vomiting fevers or chills. Return with abdominal or flank pain Lab Data Attestation: I reviewed the patient's lab results. Labs: Laboratory Results - last 24 hr 01/06/24 16:55 Urine Color SEE COMMENT BELOW Urine Clarity Clear Urine pH 5.0 Ur Specific [place] 1.020 Urine Protein 30 H Urine Glucose (UA) Normal Urine Ketones Negative Urine Occult Blood 150 H Urine Nitrite Positive H Urine Bilirubin 6 H Urine Urobilinogen 12 H Ur Leukocyte Esterase 100 H Urine RBC 10-25 SEEN Urine WBC 50-100 SEEN Ur Squamous Epith Cells 0-5 SEEN Urine Bacteria RARE Urine Mucus 0 SEEN Urine Test Negative Discharge Plan Triage Chief Complaint: Complaint ED Provider: Anthony Champion Dx/Rx/DC Orders Clinical Impression: UTI (urinary tract infection) Instructions: UTIs Understanding Prescriptions: New nitrofurantoin monohyd/m-cryst [Macrobid] 100 mg capsule 100 mg PO Q12H 7 Days Qty: 14 0RF Rx Instructions: must administer with a meal/food Primary Care Provider: Care Physician,No Primary Referrals: Aishwarya Garcia DO [Med Staff - Facility Maintenance Supervisor] - 1 Week if not improving Care Physician,No Primary [Primary Care Provider] - Disposition Disposition: Home, Self Care
[2024-01-06 19:18] VITALS: BP 121/35; PULSE 63; RESP 16; O2SAT 98
[2024-01-06] MEDS: Nitrofurantoin Macrocrystals 100 MG Capsule PO (19:18)
== END 2024-01-06 19:21 | disposition home or self-care (01) ==
PROVIDERS: Emergency Provider Emergency Medicine; Visit Provider Emergency Medicine
DX: N39.0 Urinary tract infection, site not specified (principal); F17.210 Nicotine dependence, cigarettes, uncomplicated; F17.290 Nicotine dependence, other tobacco product, uncomplicated
CPT/HCPCS: 81001; 81025; 99282

== ENCOUNTER 2024-11-04 18:06 | Emergency (ER) | payer SELFPAY ==
[2024-11-04 18:07] VITALS: BP 108/64; PULSE 78; RESP 16; TEMP 36.9; O2SAT 100; BMI 20.7
--- NOTE | 2024-11-04 20:57 | EX.ED.VIS.HA ---
HPI History of Present Illness Chief Complaint: Headache Informant: patient Onset/Context/Timing Onset: Weeks Context: Gradual Timing: Continuous Quality -Headache: Positive for Similar Prior Headaches Location: Occiput and frontal Worsened by: Nothing Relieved by: Heat Associated Symptoms/Injury Associated Symptoms: Positive for Nausea, Sore Throat, Sinus Pressure, Preceding Aura, Visual Changes and Photophobia; Negative for Fever, Vomiting, Numbness or Tingling Narrative Narrative: Patient presents with a headache that has been getting worse over the past 2 weeks. Patient states it is gradually getting worse. Patient states it is constant. Patient states she had similar episode few years ago after an EP study. Patient describes her pain as pressure and throbbing. Patient states it starts in the occiput and radiates to the frontal area. Patient states that it gets better with heat. Patient admits to some scotoma and photophobia. Patient also admits to a sore throat and sinus pressure. Patient admits to some nausea but denies any vomiting. Patient denies any fevers or chills. Prior similar symptoms: Yes PFSH PFSH Medical History PCOS (polycystic ovarian syndrome) Home Medications ?Medication ?Instructions ?Recorded ?Last Taken ?Type nitrofurantoin 100 mg PO Q12H 7 days #14 caps 01/06/24 Unknown Rx monohydrate/macrocrystals 100 mg capsule (Macrobid) Allergy/AdvReac Type Severity Reaction Status Date / Time escitalopram (From Lexapro) Allergy Intermediate Shortness Verified 11/04/24 18:07 of breath Social History Smoking Status: Current every day smoker tobacco type: cigarettes and e-cigarettes ROS ROS ED Constitutional Constitutional ED: Denies chills or fever(s) Eyes Eyes: Reports change in vision; Denies blurry vision or diplopia ENT ENT ED: Denies rhinorrhea or sore throat Cardiovascular Cardiovascular: Denies chest pain or palpitations Respiratory/Chest Respiratory/Chest: Reports cough; Denies dyspnea Gastrointestinal Gastrointestinal: Reports nausea; Denies vomiting Genitourinary Genitourinary ED: Denies dysuria or hematuria Musculoskeletal Musculoskeletal: Reports back pain and neck pain Integumentary Denies abscess or rash Neurologic Neurologic: Reports headache(s); Denies weakness Allergic/Immunologic Allergic/Immunologic ED: Denies mouth swelling or urticaria EXAM Physical Exam Const Vital Signs: 11/04/24 18:07 11/04/24 22:41 Temperature 98.5 F Temperature Source Oral Pulse Rate 78 59 L Respiratory Rate 16 16 Blood Pressure 108/64 105/40 L Blood Pressure Mean 78 61 Pulse Ox 100 97 Oxygen Delivery Method Room Air Room Air Positive well nourished and well developed General Appearance ED: well developed and NAD HEENT Reports moist mucous membranes atraumatic Neck supple, no meningeal signs and no JVD Resp normal respiratory effort and clear to auscultation bilaterally Cardio regular rate and regular rhythm GI non-tender and non-distended Palpation: soft Neuro oriented x3, CN's II-XII intact bilaterally and no sensory deficits noted [place] Coma Scale: document GCS findings Spontaneous Obeys Commands Oriented 15 Sensorium / Orientation: awake and alert Speech: speech normal Motor Exam: strength 5/5 throughout Psych mental status grossly normal MDM MDM MDM Narrative Medical decision making narrative: Differential diagnosis includes intracranial bleeding, migraine headache, tension headache, and sinus headache. CT scan of the brain will be obtained to assess for intracranial bleeding. CBC will be obtained to assess for leukocytosis and anemia. Basic metabolic profile will be obtained to assess for electrolyte abnormality and renal function. Lab Data Attestation: I reviewed the patient's lab results. Lab results narrative: CBC was reviewed and was within normal limits. Patient has profile was reported to rest within normal limits. Labs: Laboratory Results - last 24 hr 11/04/24 21:09 WBC 9.6 RBC 4.48 Hgb 13.1 Hct 38.6 MCV 86.2 MCH 29.2 MCHC 33.9 RDW Std Deviation 38.3 RDW Coeff of Brittnee 12.1 Plt Count 280 MPV 9.4 Immature Gran % (Auto) 0.300 Neut % (Auto) 69.9 Lymph % (Auto) 18.8 L [facility] % (Auto) 8.7 Eos % (Auto) 1.5 Baso % (Auto) 0.8 Absolute Neuts (auto) 6.7 Absolute Lymphs (auto) 1.81 Nucleated RBC % 0 Sodium 139 Potassium 4.0 Chloride 109 H Carbon Dioxide 24.0 Anion Gap 7 BUN 16 Creatinine 0.75 Estim Creat Clear Calc 97.30 Est GFR (MDRD) Af Amer 119 Est GFR (MDRD) Non-Af 98 BUN/Creatinine Ratio 21.3 H Glucose 75 Calcium 9.6 Radiography Diagnostic Testing: Clinical Impression(s) from Imaging Studies Brain CT 11/04/24 21:02 IMPRESSION: 1. No acute intracranial abnormality. 2. Sinus disease. Electronically Signed: Sourav Gibbons DO at 23:10 EST , CT scan of the brain was obtained. There is no acute intracranial abnormality. This was interpreted by the radiologist and was also independently reviewed by myself. Treatment and Re-Evaluation Narrative: Patient was given IV fluids, Reglan, and Benadryl. Patient had some improvement with this. Patient was given a dose of Imitrex and Toradol. Patient was feeling better on reevaluation. Patient wants to go home. Patient was instructed to follow-up with her primary care physician in 5 to 7 days. Patient was instructed to rest in a dark quiet room. Patient understood and was agreeable with the plan. All questions were answered. Discharge Plan Triage Chief Complaint: Headache ED Provider: Sandip Tejada Dx/Rx/DC Orders Clinical Impression: Migraine headache, Nicotine vapor product user Instructions: ED, Migraine (Classical) Prescriptions: No Action nitrofurantoin monohyd/m-cryst [Macrobid] 100 mg capsule 100 mg PO Q12H 7 Days Qty: 14 0RF Rx Instructions: must administer with a meal/food Stand Alone Forms: ED Work / School Excuse Primary Care Provider: Care Physician,No Primary Referrals: Linda Ortega DO [Med Staff - Active Staff] - 5-7 Days Care Physician,No Primary [Primary Care Provider] - Print Language: Italian Disposition Disposition: Home, Self Care
--- NOTE | 2024-11-04 21:02 | CT_ITS ---
INDICATION: Pain EXAMINATION: CT BRAIN - CT Head or Brain W/O Contrast Injection TECHNIQUE: Multiple axial images were obtained of the head with sagittal and coronal reconstructed images. Individualized dose optimization techniques were used for this CT. IV contrast dosage and agent: None. COMPARISON: None. FINDINGS: BRAIN PARENCHYMA: No evidence of an acute infarct or intracranial hemorrhage. No evidence of a mass. CSF SPACES: The ventricles, sulci and subarachnoid cisterns are appropriate for age. CALVARIUM, SKULL BASE, PARANASAL SINUSES AND MASTOID AIR CELLS: No fracture. Mastoid air cells are clear. Left sphenoid and ethmoid sinus mucosal thickening. ORBITS: The globes, extraocular muscles, optic nerves and retrobulbar fat are unremarkable. CT/Brain/Head without Contrast IMPRESSION: 1. No acute intracranial abnormality. 2. Sinus disease. Electronically Signed: Sourav Gibbons DO at 23:10 EST ,
[2024-11-04] MEDS: 0.9% Normal Saline (1000mL) 1,000 ML 999 ML IV (21:13)
[2024-11-04] MEDS: DiphenhydrAMINE 50 MG/ML Syringe 25 MG IV (21:13)
[2024-11-04] MEDS: Metoclopramide 10 MG/2 ML Vial IV (21:13)
[2024-11-04 21:22] LABS: Absolute Lymphocyte Count 1.81 X10^3/uL (0.83-4.51); Absolute Neutrophil Count 6.7 X10^3/uL (2.0-7.7); Basophil# 0.08 X10^3/uL; Basophil% 0.8 % (0-1); Eosinophil# 0.14 X10^3/uL; Eosinophils% 1.5 % (0-5); Hematocrit 38.6 % (37-47); Hemoglobin 13.1 g/dL (12.0-15.0); Lymphocyte # 1.81 X10^3/ul (0.83-4.51); Lymphocyte % 18.8 % (19-41); Mean Corp Hgb Conc 33.9 g/dL (32-36); Mean Corpuscular Hgb 29.2 pg (27.0-32.0); Mean Corpuscular Volume 86.2 fL (81-99); Mean Platelet Vol. 9.4 fl (6.2-12.0); Monocyte# 0.84 X10^3/uL; Monocyte% 8.7 % (0-10); NRBC Flagged by Analyzer 0 % (0-5); Neutrophil # 6.74 X10^3/uL (2.7-7.7); Neutrophil % 69.9 % (47-70); Platelet Count 280 K/mm3 (150-450); RBC Distribution Width CV 12.1 % (11.6-14.6); RBC Distribution Width SD 38.3 fl (35.1-43.9); Red Blood Count 4.48 M/mm3 (4.2-5.4); White Blood Count 9.6 K/mm3 (4.4-11.0)
[2024-11-04 21:37] LABS: Anion Gap 7 (5-15); BUN 16 mg/dL (7-18); BUN/Creat Ratio 21.3 RATIO (10-20); Calcium,Total 9.6 mg/dL (8.5-10.1); Chloride 109 mmol/L (98-107); Creatinine, Serum 0.75 mg/dL (0.55-1.02); EST Glomerular Filtration Rate 98 mL/min (>60); Est Glom Filt Rate - Afr Amer 119 mL/min (>60); Glucose 75 mg/dL (74-106); Sodium Level 139 mmol/L (136-145)
[2024-11-04 22:41] VITALS: BP 105/40; PULSE 59; RESP 16; O2SAT 97
[2024-11-04] MEDS: SUMAtriptan 6 MG/0.5 ML Vial SC (23:35)
[2024-11-04] MEDS: Ketorolac 30 MG/ML Syringe IV (23:35)
[2024-11-05 00:03] VITALS: BP 126/57; PULSE 59; RESP 16; TEMP 536.8; TEMP 998.2; O2SAT 100
== END 2024-11-05 00:04 | disposition home or self-care (01) ==
PROVIDERS: Emergency Provider Emergency Medicine; Visit Provider Emergency Medicine
DX: G43.909 Migraine, unspecified, not intractable, without status migrainosus (principal); F17.210 Nicotine dependence, cigarettes, uncomplicated; F17.290 Nicotine dependence, other tobacco product, uncomplicated
CPT/HCPCS: 70450; 80048; 85025; 96361; 96372; 96374; 96375; 99283; A4216; J3030

== ENCOUNTER 2024-12-02 19:20 | Emergency (ER) | payer SELFPAY ==
[2024-12-02 19:21] VITALS: BP 145/73; PULSE 100; RESP 17; TEMP 36.6; O2SAT 100; BMI 21.2
--- NOTE | 2024-12-02 21:23 | EDS_ITS ---
HPI History of Present Illness Chief Complaint: Eye Problem Informant: patient Narrative Narrative: Patient has been having a right eye visual disturbance for the past 4 days and now feels like it is getting worse. She states it started as what seem like a smear in the center of her vision right eye only not the left, and now the blurriness is worse. She can see light centrally if she closes her left eye, and she has what seems like relatively normal peripheral vision all around it. There is no visual field cut or vision loss. She is no headaches associated with this. She has no eye pain or foreign body sensation. She does not wear contacts or glasses prior to this. She states she has had something like this happen before but not as significant or persistent, same eye. Is not a diabetic that she knows of. She denies any focal neurologic symptoms. She states she went to a different hospital couple days ago and they did a head CT that was unremarkable according to the patient, and she was told to see an health it specialist, she does not have an eye doctor and has not made an appointment with anyone yet. [facility] Medical History PCOS (polycystic ovarian syndrome) Home Medications ?Medication ?Instructions ?Recorded ?Last Taken ?Type nitrofurantoin 100 mg PO Q12H 7 days #14 caps 01/06/24 Unknown Rx monohydrate/macrocrystals 100 mg capsule (Macrobid) Allergy/AdvReac Type Severity Reaction Status Date / Time escitalopram (From Lexapro) Allergy Intermediate Shortness Verified 12/02/24 19:22 of breath Social History Smoking Status: Current every day smoker tobacco type: cigarettes and e- cigarettes ROS ROS ED Constitutional Constitutional ED: Denies chills or fever(s) Eyes Eyes: Reports as per HPI, blurry vision right and floaters; Denies eye pain, foreign body, loss of central vision, loss of peripheral vision or seeing flashes ENT ENT ED: Denies ear pain, rhinorrhea or sore throat Musculoskeletal Musculoskeletal: Denies neck pain Neurologic Neurologic: Denies headache(s), paresthesias or weakness EXAM Physical Exam Const Vital Signs: 12/02/24 19:21 Temperature 97.9 F Temperature Source Oral Pulse Rate 100 Respiratory Rate 17 Blood Pressure 145/73 H Blood Pressure Mean 97 Pulse Ox 100 Oxygen Delivery Method Room Air Positive well nourished and well developed General Appearance ED: well developed and NAD HEENT atraumatic; Negative for tenderness Mouth ED: Yes oral and palatal mucosa normal and Yes lips normal Mouth: oral and palatal mucosa normal and lips normal Eyes PERRL and EOMs intact bilaterally Neuro oriented x3, CN's II-XII intact bilaterally and gait normal Sensorium / Orientation: alert Skin Lesions: no lesions Rashes: no rashes MDM MDM MDM Narrative Medical decision making narrative: Visual acuities as follows: 20/30 left, 20/100 right, 20/30 both. Gross inspection normal. Performs a lamp exam with the patient sitting, with and without fluorescein staining. There is no hyphema, hypopyon, flare, cell. There is no dye uptake or ulcers on the cornea. Anterior chambers deep and quiet. Attempting to look with ophthalmoscope with the posterior segments, I can see vessels, but I am not able to visualize all 4 quadrants due to miosis. I am not seeing anything that looks obviously like papilledema. Plus the patie nt's blood pressure is 145/73 and her other vital signs are normal and she has no neurologic symptoms. She is never had any blood clots before. At this time I think she is stable to be discharged home I discussed with ophthalmology Dr. Romero who was amenable to seeing her first thing in the morning, and agrees it sounds like it may be a posterior segment issue but less likely to be retinal detachment. Stable for discharge. Management Discussion w/another healthcare provider: Supervisor Word Processing (fantasma ophtho) Discharge Plan Triage Chief Complaint: Eye Problem ED Provider: Sylvain Orozco Dx/Rx/DC Orders Clinical Impression: Blurred vision, right eye Instructions: ED Blurred Vision Prescriptions: No Action nitrofurantoin monohyd/m-cryst [Macrobid] 100 mg capsule 100 mg PO Q12H 7 Days Qty: 14 0RF Rx Instructions: must administer with a meal/food Primary Care Provider: Care Physician,No Primary Referrals: Sourav Romero MD [Med Staff - Active Staff] - 12/03/24 8:00 am (may show up at office 8:00 to be seen) Print Language: Yi Disposition Disposition: Home, Self Care
[2024-12-02] MEDS: Fluorescein 1 MG STRIP 1 STRIP RIGHT EYE (22:43)
== END 2024-12-02 22:46 | disposition home or self-care (01) ==
PROVIDERS: Emergency Provider Emergency Medicine; Visit Provider Emergency Medicine
DX: H53.8 Other visual disturbances (principal); F17.210 Nicotine dependence, cigarettes, uncomplicated; F17.290 Nicotine dependence, other tobacco product, uncomplicated
CPT/HCPCS: 99283

== ENCOUNTER → 2024-12-04 | Outpatient (CLI) | payer SELFPAY | END | disposition home or self-care (01) | PROVIDERS: Referring Provider Ophthalmology Retina Specialist; Visit Provider Ophthalmology Retina Specialist | DX: H20.9 Unspecified iridocyclitis (principal) | CPT/HCPCS: 36415 ==

== ENCOUNTER → 2024-12-05 | Outpatient (CLI) | payer SELFPAY | END | disposition home or self-care (01) | PROVIDERS: Referring Provider Ophthalmology Retina Specialist; Visit Provider Ophthalmology Retina Specialist | DX: H20.9 Unspecified iridocyclitis (principal) ==

== ENCOUNTER 2025-10-05 09:25 | Emergency (ER) | payer SELFPAY ==
[2025-10-05 09:27] VITALS: BP 140/49; PULSE 83; RESP 16; TEMP 36.4; O2SAT 100; BMI 27.9
--- NOTE | 2025-10-05 10:00 | RAD_ITS ---
PROCEDURE: RAD/HIP, UNI W/ Pelvis 2-3 Views
--- NOTE | 2025-10-05 10:01 | ED.VIS.LOWEX ---
HPI History of Present Illness Chief Complaint: Lower Extremity Injury Informant: patient Narrative Narrative: Patient is a 30-year-old female with no significant medical history presenting with left hip pain. - Onset 2 days ago while sitting at a nail salon; pain was sudden and has progressively worsened. - Describes pain as a tightness localized to the lateral aspect of the left hip without radiation to the groin or back. - Pain is exacerbated by weight-bearing activities, particularly ascending stairs, and is less severe with [id number]-npatxeg movements. - Reports difficulty walking and discomfort in sitting and lying positions, leading to restless sleep. - Denies any known trauma or injury preceding the onset of pain. No fevers/chills or systemic symptoms. No groin pain. - Noted warmth in the affected area compared to the contralateral side. - Xzga-ofr-raazbyp analgesics and a menthol patch have provided no relief. - Denies any medical conditions such as diabetes and is not taking any prescription medications. [facility] Medical History Alopecia PCOS (polycystic ovarian syndrome) Home Medications ?Medication ?Instructions ?Recorded ?Last Taken ?Type NK 10/05/25 Unknown History Allergy/AdvReac Type Severity Reaction Status Date / Time escitalopram (From Lexapro) Allergy Intermediate Shortness Verified 10/05/25 09:28 of breath Social History Smoking Status: Current every day smoker tobacco type: cigarettes and e-cigarettes ROS ROS ED Constitutional Constitutional ED: Denies chills or fever(s) Musculoskeletal Musculoskeletal: Reports extremity pain; Denies neck pain Integumentary Denies Abrasions, rash or wounds Neurologic Neurologic: Denies paresthesias or weakness EXAM Physical Exam Const Vital Signs: 10/05/25 09:27 Temperature 97.5 F L Temperature Source Temporal Pulse Rate 83 Respiratory Rate 16 Blood Pressure 140/49 H Blood Pressure Mean 79 Pulse Ox 100 Oxygen Delivery Method Room Air Positive well nourished and well developed General Appearance ED: well developed and NAD Neck full ROM and supple Back/Spine normal ROM and normal to inspection Extremity normal to inspection and full ROM Extremity Narrative: Tenderness at greater trochanter of left hip, no pain with passive hip joint movement, no erythema, mild warmth over affected area. No tenderness in the sciatic notch, buttock/SI joint, low back or spine. No groin tenderness no inguinal lymphadenopathy. Neurovascular intact distally. No tenderness down the distribution of the IT band distal to the greater trochanter. Neuro oriented x3, no focal motor deficits and no sensory deficits noted Sensorium / Orientation: alert Psych mental status grossly normal and thought process normal Skin no wounds Rashes: no rashes MDM MDM MDM Narrative Medical decision making narrative: Assessment: The patient is a 30-year-old female presenting for acute left lateral hip pain since Monday without preceding trauma. Tenderness localized over the greater trochanter with pain on weight-bearing but painless passive hip ROM; exam lacks erythema or fluctuance. Plain radiographs show normal, symmetric hip bones, ruling out fracture or degenerative joint disease. Absence of aspirated fluid lowers suspicion for septic bursitis. Overall picture most consistent with left greater trochanteric bursitis. Plan: - Local anesthesia with 2 cc 1 % plain lidocaine to left greater trochanteric bursa - Attempted bursal aspiration with 21 g needle; no fluid obtained - Injected 40 mg Kenalog into bursa without complication - Provided return precautions for fever or signs of infection; advised outpatient orthopedics follow-up if symptoms persist - Discharged home in stable condition Diagnostics: - Left hip x-ray, 3 views: normal symmetric hips; no fracture, dislocation, or bony abnormality. Independently interpreted by Sylvain garcia. - Bursal aspiration: no fluid obtained Reevaluations: - Patient tolerated procedure; pain improved and able to ambulate out of department Radiography Diagnostic Testing: Clinical Impression(s) from Imaging Studies Hip/Pelvis X-Ray 10/05/25 10:00 IMPRESSION: No abnormal findings. Reading Location: [facility] Procedures Other Procedures Procedure(s): Left greater trochanter bursitis aspiration and injection: I consented the patient for the procedure, then anesthetized the area locally with 2 cc of plain 1% lidocaine. Using a 21-gauge needle, I attempted a bursal aspiration to evaluate for septic arthritis, but no fluid was obtained. The patient described discomfort, indicating the needle was appropriately positioned. After re-sterilizing with Betadine, I injected 40 mg of Kenalog into the bursa without complication. The patient tolerated the procedure well. Discharge Plan Triage Chief Complaint: Lower Extremity Injury ED Provider: Sylvain Orozco Dx/Rx/DC Orders Clinical Impression: Greater trochanteric bursitis of left hip Instructions: Understanding Trochanteric Bursitis Prescriptions: No Action NK Primary Care Provider: Care Physician,Maral Primary Referrals: Jesus Ferris DO [Med Staff - Active Staff, Orthopedics] - 1 Week if not improving Print Language: Maori Disposition Disposition: Home, Self Care
[2025-10-05] MEDS: Lidocaine 1% (20 ml mdv) 20 ML Vial 3 ML INFILT (10:48)
[2025-10-05 12:08] VITALS: BP 123/71; PULSE 71; RESP 16; TEMP 36.7; O2SAT 100
== END 2025-10-05 12:09 | disposition home or self-care (01) ==
PROVIDERS: Emergency Provider Emergency Medicine; Visit Provider Emergency Medicine
DX: M70.62 Trochanteric bursitis, left hip (principal); F17.290 Nicotine dependence, other tobacco product, uncomplicated; F17.210 Nicotine dependence, cigarettes, uncomplicated
CPT/HCPCS: 20610; 73502; 99282